=== PATIENT | male | born 1940 | race Caucasian/White ===

== ENCOUNTER 2016-09-16 06:30 | Observation (INO) | payer MEDICARE, OTHER ==
[~2016-09-16] VITALS: Ht 182.9 cm; Wt 71.8 kg
[~2016-09-16 06:30] MED LIST: AVOD0.5C PO; GLYB2.5T3 PO; LISI10TA3 PO; METF500T PO; NIAC500T5 PO; OMEG100037 PO; TAMS0.4C4 PO
[2016-09-16 07:28] VITALS: BP 153/74; PULSE 79; RESP 20; TEMP 98.1; O2SAT 98
[2016-09-16 07:36] LABS: AUTOMATED NEUTROPHIL # 3.2 TH/MM3 (1.8-7.7); BASOPHIL % 0.9 % (0.0-2.0); EOSINOPHIL # 0.2 TH/MM3 (0-0.4); EOSINOPHIL % 4.7 % (0.0-4.0); HEMATOCRIT 31.7 % (39.0-51.0); HEMO FLAGS DIFF FINAL; LYMPHOCYTE # 0.9 TH/MM3 (1.0-4.8); MEAN CELL VOLUME 96.7 FL (80.0-100.0); MEAN CORPUSCULAR HEMOGLOBIN 34.2 PG (27.0-34.0); MEAN CORPUSCULAR HGB CONC 35.3 % (32.0-36.0); MONO % 10.3 % (0.0-8.0); NEUT % 65.1 % (16.0-70.0); PLATELET COUNT 156 TH/MM3 (150-450); RED BLOOD COUNT 3.28 MIL/MM3 (4.50-5.90); RED CELL DISTRIBUTION WIDTH 13.3 % (11.6-17.2); WHITE BLOOD COUNT 4.9 TH/MM3 (4.0-11.0)
[2016-09-16] MEDS ORDERED: METOPROLOL TARTRATE 25 MG TAB PO PRN (07:45)
[2016-09-16] MEDS ORDERED: SODIUM CHLORID 0.9% 500 ML IV SCH (07:45)
[2016-09-16] MEDS ORDERED: INSULIN HUMAN REGULAR 1,000 UNITS/10 ML VIAL SQ PRN (07:45)
[2016-09-16] MEDS ORDERED: LACTATED RINGER'S 1000 ML IV SCH (07:45)
--- NOTE | 2016-09-16 08:00 | RADRPT ---
EXAM DATE/TIME: 09/16/2016 06:55 [place] COMPARISON: No previous studies available for comparison. INDICATIONS : Evaluate for pneumonia, pneumothorax, or communicable diesease, pre-op kidney stones. MEDICAL HISTORY : Bladder stones about one year ago. SURGICAL HISTORY : None. ENCOUNTER: Initial ACUITY: 1 day PAIN SCORE: 10 LOCATION: Left kidney area. FINDINGS: Supine view of the abdomen was performed. The abdominal bowel gas pattern is normal. No abnormal ma sses, calcifications, or organomegaly is seen. The osseous structures are unremarkable. The degenera tive changes thoracolumbar spine and both hips. Presumed phleboliths in the left pelvis. 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 Lung bases are clear. CONCLUSION: No acute abnormalities. Clay Atkins MD on September 16, 2016 at 7:58 Board Certified Radiologist. This report was verified electronically.
[2016-09-16] MEDS ORDERED: DEXAMETHASONE SOD PHOS 4 MG/ML VIAL ONE (08:39)
--- NOTE | 2016-09-16 09:41 | PD.OP ---
Operative Report Date of Surgery: Sep 16, 2016 Preoperative Diagnosis: (1) Renal calculus, left Postoperative Diagnosis: (1) Renal calculus, left Procedure: Extracorporeal shockwave lithotripsy of left renal calculus Anesthesia: General Surgeon: Keagan Chaves Fax Machine Operator(s): None Operation and Findings: Indication for procedure: Case of a pleasant 76-year-old gentleman with a slowly enlarging left renal pelvis calculus now measuring 19 mm. Presents today to undergo shockwave lithotripsy. Procedure in detail: Patient was brought to the operating room suite and placed supine on the lithotripsy table. He was then placed under general anesthesia. After an appropriate timeout was undertaken I proceeded with localizing the patient's left renal calculus with both fluoroscopy and ultrasound. The patient next received shockwave lithotripsy utilizing the [employer] Piezolith 3000 device. The patient received a total of 3000 shocks with a maximum power level setting of 20. At conclusion of the procedure the stone did appear to spread out somewhat consistent with fragmentation. The patient tolerated the procedure without comp occasions and was transferred to the PACU in satisfactory condition. Keagan Chaves MD Sep 16, 2016 09:41
[2016-09-16] MEDS ORDERED: PERC5TAB12 PO (09:42)
[2016-09-16] MEDS ORDERED: DO NOT ADM ANY ANTICOAGULANT DRUGS XX PRN (09:44)
[2016-09-16] MEDS ORDERED: oxyCODONE/ACETAMINOPHEN 5 MG/325 MG TAB PO PRN (09:45)
[2016-09-16] MEDS ORDERED: ONDANSETRON HCL 4 MG/2 ML VIAL IV PUSH PRN (09:45)
[2016-09-16] MEDS ORDERED: PROPOFOL 200 MG/20 ML AMP IV ONE (09:46)
[2016-09-16] MEDS ORDERED: MIDAZOLAM HCL 2 MG/2 ML VIAL ONE (09:51)
[2016-09-16] MEDS ORDERED: NON-FORMULARY DRUG (Omega-3 Fatty Acids (Fish Oil 1000 mg) 1,000 MG) PO SCH (10:00)
[2016-09-16 11:45] VITALS: BP 146/73; PULSE 54; RESP 18; TEMP 96; O2SAT 99
[2016-09-16 16:00] VITALS: BP 129/66; PULSE 67; RESP 18; TEMP 97; O2SAT 96
[2016-09-16 20:00] VITALS: BP 140/66; PULSE 71; RESP 18; TEMP 97.6; O2SAT 97
[2016-09-16] MEDS: metFORMIN HCL 500 MG TAB PO SCH (20:07)
[2016-09-16] MEDS: TAMSULOSIN HCL 0.4 MG CAP PO SCH (20:33)
[2016-09-16] MEDS: glyBURIDE 2.5 MG TAB PO SCH (20:34)
--- NOTE | 2016-09-16 21:52 | EKG ---
Date Performed: 09/16/2016 Time Performed: 07:24:21 PTAGE: 76 years EKG: Sinus rhythm WITH OCCASIONAL SUPRAVENTRICULAR PREMATURE COMPLEXES BORDERLINE ECG PREVIOUS TRACING : 04/28/2015 22.14 Compared to prior tracing no significant change DOCTOR: Joanna Koenig Interpretating Date/Time 09/16/2016 21:51:21
[2016-09-17] VITALS: BP_SYST 124; BP_SYST 129; BP_DIAS 62; BP_DIAS 67; PULSE 65; PULSE 68; RESP 16; TEMP 97.1; TEMP 97.8; O2SAT 95
[2016-09-17 04:00] VITALS: BP 134/70; PULSE 64; RESP 16; TEMP 97.6; O2SAT 94
[2016-09-17 08:00] VITALS: BP 140/73; PULSE 66; RESP 16; TEMP 96.9; O2SAT 96
[2016-09-17] MEDS: metFORMIN HCL 500 MG TAB PO SCH (08:42)
[2016-09-17] MEDS: TAMSULOSIN HCL 0.4 MG CAP PO SCH (08:42)
[2016-09-17] MEDS: glyBURIDE 2.5 MG TAB PO SCH (08:42)
[2016-09-17] MEDS ORDERED: NIACIN 500 MG EXTENDED RELEASE TAB PO SCH (09:00)
[2016-09-17] MEDS ORDERED: LISINOPRIL 10 MG TAB PO SCH (09:00)
[2016-09-17] MEDS ORDERED: FINASTERIDE 5 MG TAB PO SCH (09:00)
[2016-09-17 12:00] VITALS: BP 132/76; PULSE 71; RESP 16; TEMP 96.6; O2SAT 97
== END 2016-09-17 14:51 | disposition home or self-care (01) ==
LOC: HSDC 06:30 → HSDI 09:48 → HOCA 11:24
PROVIDERS: ADMIT Urology; ATTEND Urology
DX: N20.0 Calculus of kidney (principal); N40.0 Benign prostatic hyperplasia without lower urinary tract symptoms; E11.9 Type 2 diabetes mellitus without complications; I10 Essential (primary) hypertension; Z85.46 Personal history of malignant neoplasm of prostate
CPT/HCPCS: 00872; 50590; 74000; 85025; 93005; G0378; J1100; J2250; J7120